=== PATIENT | female | born 1945 | race Caucasian/White ===

== ENCOUNTER 2018-03-05 08:53 | Day surgery (SDC) | payer MEDICARE, OTHER ==
[2018-03-05] MEDS ORDERED: NALOXONE HCL INJ/PF 0.4 MG/1 ML SDV ONE (10:19)
[2018-03-05] MEDS ORDERED: DIPHENHYDRAMINE HCL 50 MG/ML VIAL ONE (10:19)
[2018-03-05] MEDS ORDERED: ONDANSETRON HCL INJ/PF 4 MG/2 ML SDV ONE (10:19)
[2018-03-05] MEDS ORDERED: MIDAZOLAM 2 MG/2 ML INJ ONE (10:19)
[2018-03-05] MEDS ORDERED: GLUCAGON,HUMAN RECOMB 1 MG INJ ONE (10:20)
[2018-03-05] MEDS ORDERED: EPINEPHRINE INJ 1 MG/10 ML DISP.SYRIN ONE (10:20)
[2018-03-05] MEDS ORDERED: FLUMAZENIL INJ 0.5 MG/5 ML VIAL ONE (10:20)
[2018-03-05] MEDS: MIDAZOLAM 2 MG/2 ML INJ ONE ×5 (10:39→11:07)
[2018-03-05] MEDS: FENTANYL CITRATE INJ/PF 100 MCG/2 ML AMPUL ONE ×4 (10:42→11:03)
--- NOTE | 2018-03-05 11:26 | Operative Report ---
Operative Report DATE OF SURGERY: 03/05/18 PREOPERATIVE DIAGNOSIS: Personal history of colon rectal polyps POSTOPERATIVE DIAGNOSIS: Same with. 1 scattered diverticulosis. 2 hyperplastic polyp of the rectum OPERATION: 1. Total colonoscopy to cecum with photodocumentation. 2. Rectal polypectomy 1 SURGEON: JOHN DECKER ANESTHESIA: Moderate Sedation TISSUE REMOVED OR ALTERED: Polyp COMPLICATIONS: None ESTIMATED BLOOD LOSS: Scant INTRAOPERATIVE FINDINGS: See below PROCEDURE: Obtaining informed consent the patient was taken from the preoperative holding area to the main endoscopy suite where monitoring devices were attached to the patient. Plan and surgical timeout were conducted The patient was placed in the left lateral decubitus position with knees to chest. A perianal examination was performed. There was no visible or palpable anorectal pathology except for the known internal and external hemorrhoids, small and collapsed.. Sphincter tone was felt to be normal. The flexible adult colonoscope was advanced through the anal rectal canal, all the way to the cecum. Visualization of the cecum was achieved and the ileocecal valve, the appendiceal orifice and transillumination of the anterior abdominal wall. This was an excellent study on the well-prepped bowel. The colonoscope was withdrawn slowly and methodically checked and the mucosa carefully. There was no evidence of tumor, stricture, bleeding; there was a small hyperplastic sessile polyp of the rectum which was removed with the cold forceps device. There were scattered sigmoid diverticulosis. The scope was slowly withdrawn through the anal rectal canal. Complete visualization of the rectum was achieved with photodocumentation. The internal and external hemorrhoids were noted. The scope was withdrawn to the patient's anus. The patient tolerated the procedure well and was taken to the recovery area in stable condition. Per surveillance guidelines, patient be appropriate candidate for repeat colonoscopy in 3 years or sooner if symptoms develop
--- NOTE | 2018-03-05 11:27 | Discharge Summary ---
Discharge Summary (SDC) - Discharge Final Diagnosis: Hyperplastic polyp of the rectum status post total colonoscopy to cecum Date of Surgery: 03/05/18 Discharge Date: 03/05/18 Condition: Good Referrals: GIANCARLO DUKES MD [Primary Care Provider] - Discharge Diet: As Tolerated Discharge Activity: Activity As Tolerated Home Care Assistance: None Needed Report the Following to Your Physician Immediately: Shortness of Breath, Increase in Pain, Fever over 101 Degrees
[2018-03-05 12:24] VITALS: BP 130/76
== END 2018-03-05 12:20 | disposition home or self-care (01) ==
LOC: END 08:53
PROVIDERS: ATTEND Surgery
PROC: 0DBP8ZX Excision of Rectum, Via Natural or Artificial Opening Endoscopic, Diagnostic (ICD-10-PCS; principal; 2018-03-05 09:45)
DX: K62.1 Rectal polyp (principal); K57.30 Diverticulosis of large intestine without perforation or abscess without bleeding; Z86.010 Personal history of colon polyps; I10 Essential (primary) hypertension
CPT/HCPCS: 45380; 88305 ×2; J2250; J3010; J0171; J1200; J1610; J2310; J2405; J3490